=== PATIENT | female | born 1965 | race African-American/Black ===

== ENCOUNTER 2018-09-04 09:30 | Day surgery (SDC) | payer OTHER ==
[2018-09-03 11:30] VITALS: BMI 53.7
[2018-09-04] MEDS ORDERED: Oxymetazoline HCl 0.05% ( 15 ML ) ONE ×2 (09:53→11:19)
[2018-09-04] MEDS ORDERED: Lidocaine 1% w/Epinephrine 1:100K 20 ML VIAL ONE (11:19)
[2018-09-04] MEDS ORDERED: Midazolam HCl 2 mg/2 ml Vial ONE (11:23)
[2018-09-04] MEDS ORDERED: Fentanyl 100 MCG/2 ML VIAL ONE ×3 (11:23→14:31)
[2018-09-04] MEDS ORDERED: Ferric Subsulfate 8 ML BOT ONE (12:11)
[2018-09-04] MEDS ORDERED: Morphine 4 MG/ML VIAL ONE (13:59)
[2018-09-04] MEDS ORDERED: Ondansetron ODT 4 MG TAB ONE (15:42)
[2018-09-04] MEDS ORDERED: Hydrocodone-Acetamin 15 ML UDCUP ONE (15:58)
[2018-09-04] MEDS ORDERED: Rocuronium Bromide 10 MG/ML (10ML VIAL) ONE (15:59)
[2018-09-04] MEDS ORDERED: Dexamethasone 20 MG/5 ML VIAL ONE (15:59)
[2018-09-04] MEDS ORDERED: Ondansetron PF 4 MG/2 ML Vial ONE (15:59)
[2018-09-04] MEDS ORDERED: PROPOFOL 200 MG/20 ML VIAL ONE (15:59)
[2018-09-04] MEDS ORDERED: Glycopyrrolate 0.2 MG/ML 5 ML SYRINGE ONE (15:59)
[2018-09-04] MEDS ORDERED: Lidocaine 1% PF 5 ML VIAL ONE (15:59)
--- NOTE | 2018-09-04 16:51 | EKG ---
Test Reason : PREOP Blood Pressure : / mmHG Vent. Rate : 068 BPM Atrial Rate : 068 BPM P-R Int : 154 ms QRS Dur : 084 ms QT Int : 416 ms P-R-T Axes : 037 006 001 degrees QTc Int : 442 ms Normal sinus rhythm Normal ECG No previous ECGs available Confirmed by SHALOM SMITH, DR. Munoz ([id number]) on 09/04/2018 4:51:06 PM Referred By: JOSÉ MIGUEL Confirmed By:DR. Tammy RAUSCH MD
--- NOTE | 2018-09-05 08:19 | OP ---
DATE OF PROCEDURE: 09/04/2018 PREOPERATIVE DIAGNOSES: 1. Chronic rhinosinusitis. 2. Bilateral inferior turbinate hypertrophy. 3. Chronic adenotonsillitis. 4. Adenotonsillar hypertrophy. 5. Obstructive sleep apnea. POSTOPERATIVE DIAGNOSES: 1. Chronic rhinosinusitis. 2. Bilateral inferior turbinate hypertrophy. 3. Chronic adenotonsillitis. 4. Adenotonsillar hypertrophy. 5. Obstructive sleep apnea. PROCEDURES PERFORMED: 1. Bilateral endoscopic sinus surgery, total ethmoidectomies. 2. Bilateral endoscopic sinus surgery, maxillary antrostomies. 3. Bilateral endoscopic sinus surgery, frontal sinusotomies. 4. Bilateral endoscopic sinus surgery, sphenoidotomies. 5. Bilateral inferior turbinate submucosal resection. 6. Tonsillectomy and adenoidectomy. ESTIMATED BLOOD LOSS: 20 mL. COMPLICATIONS: None. 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 PROCEDURE IN DETAIL: TONSILLECTOMY AND ADENOIDECTOMY: After consent was obtained, the patient was identified, brought to the operating room, and placed on the operating table in the supine position. General endotracheal anesthesia and intravenous access were obtained and we proceeded with positioning the patient for oropharyngeal surgery. Oropharyngeal exposure was obtained with a Buddy-Orion mouth gag after a head drape was placed and secured with a towel clip. The Buddy-Orion mouth gag was then suspended from the Young tray and palatal elevation was achieved with a red rubber catheter. The right tonsil was addressed first. We used a curved Allis to grasp the tonsil and retract it medially as an anterior pillar incision was made. The retrotonsillar fascial plane was then established and blunt dissection was performed with the suction cautery. Blood vessels were anticipated, identified, and cauterized as they were encountered. Ultimately, dissection was carried to the posterior tonsillar pillar mucosa which was incised hemostatically, as well as the base of tongue connection. The tonsil was then passed off as a specimen and bleeding points within the tonsillar bed were cauterized under direct visualization. We subsequently turned our attention to the contralateral side, where using a similar technique, a near identical procedure was performed. Again, the tonsil was grasped and retracted medially with a curved Allis. The retrotonsillar fascial plane was established and while the anterior pillar was retracted medially. The hemostatic blunt dissection of the tonsil with a suction cautery was performed with blood vessels anticipated, identified, and cauterized as they were encountered. Again, dissection continued to the base of tongue and posterior tonsillar pillar mucosa which was incised in a hemostatic fashion. The tonsillar beds were then carefully inspected and bleeding points were identified and cauterized with a suction cautery. After this portion of the procedure, hemostasis was completely obtained. Under direct mirror visualization, we visualized the adenoid pad. Under direct mirror visualization, we removed the bulk of the adenoid tissue with the adenoid curette. We then packed the nasopharynx for an appropriate period of time with [id number]-[id number] tonsillar sponges. After a period of observation, we removed the pack. Under indirect mirror visualization, we obtained hemostasis and vaporization of residual adenoid tissue with electrocautery. The patient's oral cavity was copiously irrigated with iced saline and subsequently suctioned. After completion of the procedure, the nasal cavity and oropharynx were irrigated and suctioned as were the gastric contents. The patient was then placed in a beach chair position. Afrin pledgets were placed in nasal cavity. 1% lidocaine with 1:100,000 epinephrine was injected into the inferior turbinates, middle turbinates, and lateral nasal wall bilaterally. Following this, the Afrin pledgets were removed and the 0-degree endoscope was then used to examine the nasal cavity. The middle turbinates were identified and were gently medialized using a [place] elevator. Following this, the uncinate process was then identified and was anteriorly fractured using a ball-ended probe. Following this, the uncinate was removed with the microdebrider and upbiting Blakesley forceps bilaterally. Following this, the natural maxillary sinus ostia was identified and was gently widened using a curved microdebrider and straight [place]akesley forceps bilaterally. Following this, the ethmoidal bulla was identified and was punctured on its medial and inferior aspects using the microdebrider and it was removed. Following this, the grand lamella was identified and was punctured into the posterior ethmoidal cells. Working from posterior to anterior, the ethmoidal cells were opened using the 0-degree microdebrider and the 40-degree microdebrider and up-biting Blakesley forceps. Following this, the sphenoid sinuses were approached through the previous ethmoidectomies with the attachment of the superior turbinates until the posterior nasal wall was identified. Staying just medial and inferior to this area, a sphenoid sinus ostia was created and was widened medially and inferiorly using the 0-degree microdebrider bilaterally. Following this, the 45-degree scope and the 40-degree microdebrider blade was then used to further open the frontal recess cells bilaterally, which exposed for further removal and opening of the frontal sinus ostia bilaterally. Following this, the nasal cavity was irrigated. Mirapex was placed within the middle meatus. The patient tolerated the procedure well. The patient was then awakened and transferred to the recovery room where the patient remained in stable condition prior to discharge to Day Stay. Job ID: [id number]
== END 2018-09-04 17:20 | disposition home or self-care (01) ==
LOC: SDC 09:30
PROVIDERS: ATTEND Otolaryngology Plastic Surgery within the Head & Neck
PROC: 0CTQXZZ Resection of Adenoids, External Approach (ICD-10-PCS; principal; 2018-09-04)
PROC: 09TL7ZZ Resection of Nasal Turbinate, Via Natural or Artificial Opening (ICD-10-PCS; principal; 2018-09-04)
PROC: 099Q8ZZ Drainage of Right Maxillary Sinus, Via Natural or Artificial Opening Endoscopic (ICD-10-PCS; principal; 2018-09-04)
PROC: 099W8ZZ Drainage of Right Sphenoid Sinus, Via Natural or Artificial Opening Endoscopic (ICD-10-PCS; principal; 2018-09-04)
PROC: 0CTPXZZ Resection of Tonsils, External Approach (ICD-10-PCS; principal; 2018-09-04)
PROC: 099X8ZZ Drainage of Left Sphenoid Sinus, Via Natural or Artificial Opening Endoscopic (ICD-10-PCS; principal; 2018-09-04)
PROC: 099T8ZZ Drainage of Left Frontal Sinus, Via Natural or Artificial Opening Endoscopic (ICD-10-PCS; principal; 2018-09-04)
PROC: 09TU8ZZ Resection of Right Ethmoid Sinus, Via Natural or Artificial Opening Endoscopic (ICD-10-PCS; principal; 2018-09-04)
PROC: 099R8ZZ Drainage of Left Maxillary Sinus, Via Natural or Artificial Opening Endoscopic (ICD-10-PCS; principal; 2018-09-04)
PROC: 09TV8ZZ Resection of Left Ethmoid Sinus, Via Natural or Artificial Opening Endoscopic (ICD-10-PCS; principal; 2018-09-04)
PROC: 099S8ZZ Drainage of Right Frontal Sinus, Via Natural or Artificial Opening Endoscopic (ICD-10-PCS; principal; 2018-09-04)
DX: J32.4 Chronic pansinusitis (principal); J34.3 Hypertrophy of nasal turbinates; J35.03 Chronic tonsillitis and adenoiditis; G47.33 Obstructive sleep apnea (adult) (pediatric); J34.2 Deviated nasal septum; J45.909 Unspecified asthma, uncomplicated; M19.90 Unspecified osteoarthritis, unspecified site; I10 Essential (primary) hypertension; E07.9 Disorder of thyroid, unspecified; K21.9 Gastro-esophageal reflux disease without esophagitis; Z79.899 Other long term (current) drug therapy; Z88.5 Allergy status to narcotic agent; Z88.8 Allergy status to other drugs, medicaments and biological substances
CPT/HCPCS: 85014; 88304; 93005; 93010; J0131; J1100; J2001; J2250; J2270; J2405; J2704; J3010; Q0162